=== PATIENT | female | born 1955 | race Caucasian/White ===

== ENCOUNTER 2024-03-15 20:49 | Emergency (ER) | payer MEDICARE, OTHER, SELFPAY ==
[2024-03-15 20:55] VITALS: BP 150/72
[2024-03-15 21:12] LABS: % Basophils 0.7 % (0-2); % Eosinophils 14.5 % (0-6); % Immature Granulocytes 0.2 % (0-0.5); % Lymphocytes 37.2 % (20.5-51.1); % Monocytes 8.8 % (1.7-9.3); % Neutrophils 38.6 % (42.2-75.2); Absolute Basophils 0.1 10^3/uL (0-0.2); Absolute Eosinophils 1.2 10^3/uL (0-0.7); Absolute Monocytes 0.7 10^3/uL (0.1-0.6); Absolute Neutrophils 3.1 10^3/uL (1.4-6.5); Hematocrit 37.1 % (37.0-47.0); Hemoglobin 12.9 g/dL (12.0-16.0); Mean Corp Hgb Conc. 34.8 g/dL (33.0-37.0); Mean Corpuscular Hgb 30.6 pg (27.0-31.0); Mean Corpuscular Volume 87.9 fL (81.0-99.0); Mean Platelet Volume 10.8 fL (7.4-10.4); Nucleated Red Blood Cells % 0 %; Platelet Count 240 10^3/uL (130-400); Red Blood Cell Count 4.22 10^6/uL (4.20-5.40); Red Cell Dist. Width 12.9 % (11.5-14.5); White Blood Cell Count 8.1 10^3/uL (4.8-10.8)
[2024-03-15 21:27] LABS: ALT (SGPT) 19 U/L (0-35); AST (SGOT) 29 U/L (14-36); Albumin 3.8 g/dl (3.5-5.0); Alkaline Phosphatase 58 U/L (38-126); Blood Urea Nitrogen 15 mg/dl (7-17); Calcium 9.4 mg/dl (8.4-10.2); Carbon Dioxide 27 mmol/L (22-30); Chloride 104 mmol/L (98-107); Glucose 103 mg/dl (70-99); Sodium 138 mmol/L (135-145); Total Bilirubin 0.5 mg/dl (0.2-1.3); Total Protein 6.3 g/dl (6.3-8.2); eGFR > 60.00
[2024-03-15 21:28] LABS: Lipase 790 U/L (23-300)
--- NOTE | 2024-03-15 22:25 | ED.GENMED ---
History of Present Illness
General
Chief Complaint: Abdominal Pain
Source: patient
Exam Limitations: none
Time Seen by Provider: 03/15/24 21:52
Travel History
Have you had any contact with someone who has COVID-19?: No
Do you have any symptoms of coronavirus? Fever > 100 degrees, chills, cough, shortness of breath, sore throat, loss of taste or smell, muscle aches, or headache?: No
History of Present Illness
History of Present Illness:
This is a 68 year old female that comes in with c/o abd pain. States that she started with diarrhea 5 weeks ago. States that she saw the PCP and she ordered a lot of test and they were normal. States that she was told that if she continued with abd
pain to go to ER. States that she eat [employer] tonight with rice and she tolerated this 2 days ago but tonight she started with abd pain. States that the pain last 4-5 hours. States that her stool has been thin and then she will continue to have
stool but it is diarrhea. States that she did take 2 Imodium yesterday. States that she had diarrhea 4-5 times today. Denies any fever, chills, chest pain, SOB, nausea, vomiting, headache, dizziness, urinary burning.
Past History
Past History
ED Past Medical History: Hypercholesterolemia and Psychiatric (Anxiety, depression)
ED Past Surgical History: Appendectomy
Social History
Tobacco: Non-smoker
Alcohol: None
Personal:
Living: alone
Review of Systems
Review of Systems
All Other Systems: ROS reviewed and negative except as documented in HPI and ROS
Constitutional: Reports no symptoms; Denies fever or chills
EENT: Reports no symptoms
Respiratory: Reports no symptoms; Denies cough or trouble breathing
Cardiac: Reports no symptoms; Denies chest pain
ABD/GI: Reports abdominal pain and diarrhea; Denies nausea or vomiting
: Reports no symptoms; Denies dysuria, frequency or urgency
Musculoskeletal: Reports no symptoms
Skin: Reports no symptoms
Neurological: Reports no symptoms; Denies dizzy or headache
Psychiatric: Reports no symptoms
Phy Exam
General Physical Exam
General Presentation: no apparent distress
General age: appears stated age
General Skin: warm and dry
General Habitus: elderly
General Mental: alert
General Hydration: dry mucous membranes
ENT Exam
ENT Exam: TM's normal, pharynx normal and neck supple
Eye Exam
Eye Exam: EOMI
Cardiovascular Exam
Cardiovascular Exam: regular rate/rhythm, no edema, no murmur and normal peripheral pulses
Pulmonary Exam
Pulmonary Exam: lungs clear, no respiratory distress, no rales, chest non tender, no crackles, no rhonchi, no wheezing and no cough
Gastrointestinal Exam
Gastrointestinal Exam: normal bowel sounds, non tender, soft, no organomegaly, no pulsatile mass and non distended
Musculoskeletal Exam
Musculoskeletal Exam: full ROM and no edema
Skin Exam
Skin Exam: normal color, warm/dry, no rash and no petechia
Psychiatric Exam
Psychiatric Exam: normal mood/affect
Course
Orders/Labs/Results
Orders:
Orders
03/15/24 21:04
Complete Blood Count/With Diff Urgent
Comprehensive Metabolic Panel Urgent
Lipase Urgent
03/15/24 22:24
0.9% Sodium Chloride 1000 ml [Nss] 1,000 ml IV BOLUS
Iohexol [Omnipaque] See Protocol PO NOW STA
03/15/24 22:33
Ketorolac [Toradol] 30 mg IV NOW STA
03/16/24 01:00
CT Abd/pel W Iv And Oral Contr Urgent
Reason For Exam: abd pain, diarrhea
Abnormal Lab Results
03/15/24
21:04
MPV 10.8 H fL
(7.4-10.4)
Absolute Monos (auto) 0.7 H 10^3/uL
(0.1-0.6)
Absolute Eos (auto) 1.2 H 10^3/uL
(0-0.7)
Neutrophils % 38.6 L %
(42.2-75.2)
Eosinophils % 14.5 H %
(0-6)
Glucose 103 H mg/dl
(70-99)
Lipase 790 H U/L
(23-300)
03/15/24 21:04
03/15/24 21:04
Glucose nonfasting. Lipase elevation (possible early pancreatitis)
Vital Signs
Initial and Last Documented VS:
Initial Vital Signs
Temp Pulse Resp BP Pulse Ox
98.2 F 60 18 150/72 96
03/15/24 20:55 03/15/24 20:55 03/15/24 20:55 03/15/24 20:55 03/15/24 20:55
Last Documented Vital Signs
Temp Pulse Resp BP Pulse Ox
98.2 F 54 16 146/87 98
03/15/24 20:55 03/16/24 00:45 03/16/24 00:45 03/16/24 00:22 03/16/24 00:45
MDM/Problems Addressed
Differential Diagnosis Includes:
Enteritis, Colitis
MDM/Problems Addressed:
This is a 68 year old female that comes in with c/o abd pain and diarrhea. States that this started 5 weeks ago and has continued. Patient saw her PCP and had testing but this was normal. Told to come to the ER if her pain continued.
Will get labs and CT scan. Will give IV fluids.
Back into see patient. Reviewed labs. Explained that her Lipase is slightly elevated but she has no upper abd discomfort and is not vomiting. However, would have family doctor recheck labs in a few days to make sure this is not continuing to raise.
Patient to stay away from milk and milk products until the diarrhea stops. Patient can eat chicken, rice and potatoes. Bananas are binding. Patient to return with increased or changing pain, fever, or any other concerns.
Chronic conditions affecting care:
NA
Acute Exacerbation and/or Progression of Chronic Illness:
NA
*Radiology
Radiology exam reviewed: radiology read reviewed (CT night hawk- Mild thickening of the proximal jejunum more than expected for peristalsis concerning for enteritis. NO obstruction, pneumatosis or free air. Appendectomy. NO renal or obstructing
ureteral stones. NO hydronephrosis or hydroureter. Gallbladder is unremarkable. No obvious stones but CT ) and other (CT cont- has a diminished sensitivity for noncalcified gallstones. No biliary dilation. No adnexal masses or Significant free
fluid. )
*Pulse Oximetry
Patient hypoxic: no
*EKG
Interpreted by ED Provider?: NA
Rate: EKG- N/A
*Spray Machine Loader Interpretation
Rate: Spray Machine Loader- N/A
*Critical Care Note
Total Time (30-74mins, 75-104mins- exclusive of procedures): Not Applicable
ED Attending Note
-
Portions of this chart may have been created with voice recognition software.� Occasional wrong word or��sound alike� substitutions may have occurred due to the inherent limitations of voice recognition software.
Discharge Plan
Departure
Patient Disposition: Home (Routine Discharge)
Date of Disposition: 03/16/24
Time of Disposition: 02:00
Patient with high blood pressure during this ER visit?: Yes
Condition: Good
Covid-19: Not Applicable
Discharge Problem:
Enteritis
Instructions: Abdominal Pain, BLOOD PRESSURE
Referrals:
Feli Pandya, [Family Provider] - Follow up in 2-3 days
Activity Restrictions/Additional Instructions:
As discussed, your blood work is normal except your Lipase is elevated. This should be rechecked by the family doctor in 2-3 days to make sure that it is not continuing to rise. Your CT shows that you have enteritis. This is a viral illness and
will go away on its own. Please stay away from milk and milk products until the diarrhea stops. Chicken, rice and potatoes are easily digested. Banana's are binding. Please increase your water intake to 8-8oz glasses daily. Follow up with the family
doctor in 2-3 days for recheck. IF YOU HAVE INCREASED OR CHANGING PAIN, FEVER, OR YOU HAVE ANY OTHER CONCERNS PLEASE RETURN TO THE EMERGENCY ROOM.
Interventions
Interventions:
*Risk Screen - Suicide Last Done: 03/15/24 20:55
*General Assessment Last Done: 03/15/24 22:53
*Neglect/Abuse Screening Last Done: 03/15/24 20:55
*ED COVID-19 Vaccine History Last Done: 03/15/24 22:53
YR-Oxrbqc-Jgllekghkm Assessment Last Done: 03/15/24 23:47
Discharge Date and Time
Print Language: SAMI
[2024-03-15] MEDS: OMNIPAQUE 50 ML PO (22:47)
[2024-03-15] MEDS: NSS 1000 IV (22:50)
[2024-03-15] MEDS: TORADOL 30 MG IV (22:50)
[2024-03-15 22:53] VITALS: BMI 28.4
[2024-03-15 22:55] VITALS: BP 149/71
[2024-03-16 00:22] VITALS: BP 146/87
[2024-03-16 02:01] VITALS: BP 129/76
== END 2024-03-16 02:14 | disposition home or self-care (01) ==
LOC: EMR 20:49
PROVIDERS: EMERGENCY PHYSICIAN Emergency Medicine; FAMILY PHYSICIAN Family Medicine
DX: K52.9 Noninfective gastroenteritis and colitis, unspecified (principal); R03.0 Elevated blood-pressure reading, without diagnosis of hypertension
CPT/HCPCS: 99285; 96374; 96361; 74177; 80053; 83690; 85025; Q9967

== ENCOUNTER 2024-06-11 07:49 | Emergency (ER) | payer MEDICARE, OTHER, SELFPAY ==
[2024-06-11 07:51] VITALS: BP 126/86
[2024-06-11 08:03] VITALS: BMI 24.6
--- NOTE | 2024-06-11 08:24 | EDRN ---
pt assessment performed and documented in work list, the pt went to the bathroom to attempt to urinate however the pt stated that she could not and 'feels pressure', this RN performed bladder scan, labs were drawn and sent, the pt is resting in
stretcher in the lowest position, side rails up x1, HOB elevated, call zuñiga within reach, awaiting for provider to come to the pts bedside, will continue to monitor the pt closely
[2024-06-11 08:32] LABS: % Basophils 1.1 % (0-2); % Eosinophils 2.3 % (0-6); % Immature Granulocytes 0.1 % (0-0.5); % Lymphocytes 22.1 % (20.5-51.1); % Monocytes 7.7 % (1.7-9.3); % Neutrophils 66.7 % (42.2-75.2); Absolute Basophils 0.1 10^3/uL (0-0.2); Absolute Eosinophils 0.2 10^3/uL (0-0.7); Absolute Lymphocytes 1.6 10^3/uL (1.2-3.4); Absolute Monocytes 0.6 10^3/uL (0.1-0.6); Absolute Neutrophils 4.8 10^3/uL (1.4-6.5); Hematocrit 40.1 % (37.0-47.0); Hemoglobin 13.6 g/dL (12.0-16.0); Mean Corp Hgb Conc. 33.9 g/dL (33.0-37.0); Mean Corpuscular Hgb 30.4 pg (27.0-31.0); Mean Corpuscular Volume 89.7 fL (81.0-99.0); Mean Platelet Volume 10.5 fL (7.4-10.4); Nucleated Red Blood Cells % 0 %; Platelet Count 254 10^3/uL (130-400); Red Blood Cell Count 4.47 10^6/uL (4.20-5.40); Red Cell Dist. Width 13.1 % (11.5-14.5); White Blood Cell Count 7.3 10^3/uL (4.8-10.8)
--- NOTE | 2024-06-11 08:33 | EDRN ---
provider currently at the pts bedside speaking with the pt
[2024-06-11] MEDS: NSS 1000 IV (08:37)
--- NOTE | 2024-06-11 08:37 | ED.GENMED ---
History of Present Illness
General
Chief Complaint: Urinary Symptoms
Source: patient
Exam Limitations: none
Time Seen by Provider: 06/11/24 08:09
Nursing documentation reviewed up to this point in time: agreed with
History of Present Illness
History of Present Illness:
68-year-old female difficulty urinating onset a week or so ago saw her PCP had a urinalysis started on Macrobid improved got a call states that her culture was negative, worsening over the past day or so no fever chills no nausea or vomiting no
chest pain or shortness of breath she had an appendectomy, believes she had urinary issues as a child, though she is not sure of the details, feels like she cannot start her stream or empty her bladder, never had diverticulitis, points midline in
her low abdomen where the pressure is
She did tell me her anxiety and depression started up around the same time as her urinary symptoms--- her physicians doubled her Celexa around this time, last night she felt like she could not sleep took 5 Klonopin denies a suicidal attempt
Past History
Past History
ED Past Medical History: Hypercholesterolemia and Psychiatric (Anxiety, depression)
ED Past Surgical History: Appendectomy
Social History
Tobacco: Non-smoker
Alcohol: None
Drug: None
Personal:
Living: alone
Employment: Retired
Review of Systems
Review of Systems
All Other Systems: Not applicable
Constitutional: Denies fever or fatigue
EENT: Reports no symptoms
Respiratory: Reports no symptoms
Cardiac: Reports no symptoms
ABD/GI: Denies abdominal pain
: Reports difficulty voiding and urgency; Denies dysuria, frequency, flank pain, incontinence or bleeding
Musculoskeletal: Reports no symptoms
Skin: Reports no symptoms
Neurological: Reports no symptoms
Endocrine: Reports no symptoms
Phy Exam
Physical Exam
Physical Exam:
Physical Exam
General: no apparent distress, not acutely ill
Neck: No jaundice
Heart: s1/s2 regular rate and rhythm, no murmur. equal radial pulses.
Lungs: no acute respiratory distress. clear bilaterally
Abdomen: Mild suprapubic tenderness no CVA tenderness
Neuro: alert and oriented. no focal neurological deficits
Skin: no rash
Psychiatric: well kept. interactive and cooperative
Extremities: no edema.
Course
Orders/Labs/Results
Orders:
Orders
06/11/24 08:20
Acetaminophen Urgent
Comment: ADD ON
Complete Blood Count/With Diff Urgent
Comprehensive Metabolic Panel Urgent
Lipase Urgent
Salicylate Urgent
Comment: ADD ON
Urinalysis Reflex To Culture Urgent
Date Specimen was Collected: 06/11/24
Time Specimen was Collected: 08:01
Urine Microscopic Reflex Cult Urgent
Urine Culture Urgent
CALEB Source: U
Specimen Description:
Date Specimen was Collected: 06/11/24
Time Specimen was Collected: 08:01
06/11/24 08:37
0.9% Sodium Chloride 1000 ml [Nss] 1,000 ml IV BOLUS
06/11/24 08:50
Add On- LAB Urgent
Tests Added?: Acetaminophen,/salicylate
Crisis Consult Routine
Reason for Consult: depression
Abnormal Lab Results
06/11/24
08:20
MPV 10.5 H fL
(7.4-10.4)
Chloride 108 H mmol/L
(98-107)
Glucose 103 H mg/dl
(70-99)
Leukocyte Esterase Rfl 1+ A
(Negative)
Salicylates < 1.0 L mg/dl
(2.0-20.0)
Acetaminophen < 10 L ug/ml
(10-30)
06/11/24 08:20
06/11/24 08:20
Vital Signs
Initial and Last Documented VS:
Initial Vital Signs
Temp Pulse Resp BP Pulse Ox
97.8 F 64 16 126/86 98
06/11/24 07:51 06/11/24 07:51 06/11/24 07:51 06/11/24 07:51 06/11/24 07:51
Last Documented Vital Signs
Temp Pulse Resp BP Pulse Ox
97.8 F 58 13 126/86 96
06/11/24 07:51 06/11/24 08:30 06/11/24 08:30 06/11/24 07:51 06/11/24 08:30
MDM/Problems Addressed
Differential Diagnosis Includes:
Retention UTI med effect stone diverticular disease
MDM/Problems Addressed:
Trouble urinating
Chronic conditions affecting care: Previous abdomnial surgery and Psychiatric illness
Acute Exacerbation and/or Progression of Chronic Illness: Previous abdomnial surgery and Psychiatric illness
*Pulse Oximetry
Patient hypoxic: no
*Critical Care Note
Total Time (30-74mins, 75-104mins- exclusive of procedures): Not Applicable
Update Note
Update Note:
Update bladder scan noted, her Celexa was increased we will review pharmacology perhaps this is all anticholinergic, additionally she took 5 Klonopin last night denies suicidal thoughts will add salicylate and acetaminophen quantitative levels as
crisis to evaluate her
Update labs noted, urine noted equivocal for infection, just completed some Macrobid await culture reviewed with crisis cleared for discharge arrangements made for new psychiatrist she is only seeing a PCP
Will start on a short course of Flomax at nighttime, have her follow-up with her PCP, urogynecology, and psychiatry
ED Attending Note
-
Portions of this chart may have been created with voice recognition software.� Occasional wrong word or��sound alike� substitutions may have occurred due to the inherent limitations of voice recognition software.
Discharge Plan
Departure
Patient Disposition: Home (Routine Discharge)
Date of Disposition: 06/11/24
Time of Disposition: 10:28
Patient with high blood pressure during this ER visit?: No
Condition: Good
Discharge Problem:
Trouble urinating
Instructions: Urinary retention - Discharge instructions, Urinary retention
Prescriptions:
New
tamsulosin [Flomax] 0.4 mg capsule
0.4 mg PO HS Qty: 10 0RF
Referrals:
Nayeli Kirk DO [Active] - Next open appointment
Feli Pandya DO [Family Provider] - Next open appointment
Interventions
Interventions:
*Risk Screen - Suicide Last Done: 06/11/24 07:51
*General Assessment Last Done: 06/11/24 07:51
*Neglect/Abuse Screening Last Done: 06/11/24 07:51
ED- Fall Risk Assessment Last Done: 06/11/24 08:03
*ED COVID-19 Vaccine History Last Done: 06/11/24 08:03
ED-Female Genitourinary Assessment Last Done: 06/11/24 08:03
Discharge Date and Time
Print Language: KITTITIAN
[2024-06-11 08:45] LABS: ALT (SGPT) 18 U/L (0-35); AST (SGOT) 26 U/L (14-36); Albumin 4.3 g/dl (3.5-5.0); Alkaline Phosphatase 66 U/L (38-126); Blood Urea Nitrogen 12 mg/dl (7-17); Calcium 9.5 mg/dl (8.4-10.2); Carbon Dioxide 28 mmol/L (22-30); Chloride 108 mmol/L (98-107); Estimated Creatinine Clearance 70 ml/min; Glucose 103 mg/dl (70-99); Lipase 108 U/L (23-300); Potassium 4.1 mmol/L (3.5-5.1); Sodium 138 mmol/L (135-145); Total Bilirubin 0.6 mg/dl (0.2-1.3); Total Protein 6.8 g/dl (6.3-8.2); eGFR > 60.00
--- NOTE | 2024-06-11 08:50 | EDRN ---
Dr. Munoz currently at the pts bedside speaking with the pt
--- NOTE | 2024-06-11 08:52 | EDRN ---
the pt pressed the call zuñiga and this RN entered the pts room, the pt stated that she wanted to try to urinate, this RN unhooked the pt from the monitor and the pt was able to ambulate to the bathroom with no issues, the pt wanted privacy, this RN
will continue to monitor the pt closely
--- NOTE | 2024-06-11 08:53 | EDRN ---
a crisis consult has been placed for the pt due to the pt stating to the provider that she 'feels more depressed than usual and my anxiety is crippling, i took an extra clonopin just to relax, i wasn't trying to hurt myself of anything, i just feel
like my anxiety has gotten out of control', crisis has been notified, will continue to monitor the pt closely
--- NOTE | 2024-06-11 09:05 | EDRN ---
the pt pressed the call zuñiga and this RN entered the pts room, the pt was able to provide a urine sample, urine specimen sent to lab
[2024-06-11 09:10] LABS: Acetaminophen < 10 ug/ml (10-30); Salicylate < 1.0 mg/dl (2.0-20.0)
--- NOTE | 2024-06-11 09:32 | EDRN ---
crisis staff currently at the pts bedside speaking with the pt
[2024-06-11 09:36] LABS: Urine Albumin Negative (Neg - Trace); Urine Bilirubin Negative (Negative); Urine Character Clear (Clear); Urine Color Yellow; Urine Glucose Negative (Negative); Urine Ketone Negative (Negative); Urine Leukocyte 1+ (Negative); Urine Nitrite Negative (Negative); Urine Occult Blood Negative (Negative); Urine Urobilinogen Negative (Neg - 1+)
[2024-06-11 10:02] LABS: Urine Amorphous Seen
[2024-06-11 10:03] LABS: Urine Red Blood Cell 0-2 /HPF (0-2)
--- NOTE | 2024-06-11 10:29 | EDRN ---
Dr. Munoz and crisis staff currently at the pts bedside speaking with the pt
[2024-06-11 10:30] VITALS: BP 136/81
[2024-06-11 11:36] VITALS: BP 123/71
== END 2024-06-11 11:40 | disposition home or self-care (01) ==
LOC: EMR 07:49
PROVIDERS: Emergency Medicine; EMERGENCY PHYSICIAN Emergency Medicine; FAMILY PHYSICIAN Family Medicine
DX: R39.15 Urgency of urination (principal); R39.198 Other difficulties with micturition; R10.30 Lower abdominal pain, unspecified; F41.9 Anxiety disorder, unspecified; F32.A Depression, unspecified; E78.00 Pure hypercholesterolemia, unspecified; Z86.16 Personal history of COVID-19
CPT/HCPCS: 99284; 96360; 51798; 80053; 80143; 80179; 81003; 81015; 83690; 85025; 87086

== ENCOUNTER 2024-06-16 10:59 | Emergency (ER) | payer MEDICARE, OTHER, SELFPAY ==
[2024-06-16 11:06] VITALS: BP 122/92
[2024-06-16 13:12] VITALS: BP 137/80
[2024-06-16 13:33] LABS: Urine Albumin Negative (Neg - Trace); Urine Bilirubin Negative (Negative); Urine Character Clear (Clear); Urine Color Yellow; Urine Glucose Negative (Negative); Urine Ketone Trace (Negative); Urine Leukocyte 2+ (Negative); Urine Nitrite Negative (Negative); Urine Occult Blood Negative (Negative); Urine Urobilinogen Negative (Neg - 1+)
--- NOTE | 2024-06-16 13:45 | ED.GENMED ---
History of Present Illness
General
Chief Complaint: Anxiety
Source: patient
Time Seen by Provider: 06/16/24 13:31
History of Present Illness
History of Present Illness:
68yoF with a history of anxiety presenting for evaluation of depression. Patient has a history of ongoing depression for many years and was previously maintained on Celexa and Klonopin 1 mg daily. Her symptoms have been worsening over the past
several weeks. She has been following with her PCP regarding her symptoms who has been adjusting her medications. She started a Klonopin taper about 1 week ago and is currently taking 0.75 mg daily. Her Celexa was also discontinued and she was
initiated on Lexapro and Atarax. Patient is having trouble particularly at nighttime. She denies any suicidal or homicidal ideations. Patient was advised to go to the ED by her PCP today.
Past History
Past History
ED Past Medical History: Hypercholesterolemia and Psychiatric (Anxiety, depression)
ED Past Surgical History: Appendectomy
Social History
Tobacco: Non-smoker
Alcohol: None
Drug: None
Personal:
Living: alone
Employment: Retired
Phy Exam
General Physical Exam
General Presentation: well appearing and no apparent distress
General age: appears stated age
General Skin: warm and dry
General Habitus: normal
General Mental: alert
Cardiovascular Exam
Cardiovascular Exam: regular rate/rhythm
Pulmonary Exam
Pulmonary Exam: no respiratory distress
Nieves Coma Scale
Eye Opening: Spontaneous
Verbal Response: Oriented
Motor Response: Obeys Commands
GCS Total Score: 15
Skin Exam
Skin Exam: normal color and warm/dry
Psychiatric Exam
Psychiatric Exam: depressed and other (Maintains good eye contact and forthcoming with details. No SI/HI. No signs of psychosis. )
Course
Orders/Labs/Results
Orders:
Orders
06/16/24 13:14
Urinalysis Reflex To Culture Urgent
Date Specimen was Collected: 06/16/24
Time Specimen was Collected: 13:11
Urine Microscopic Reflex Cult Urgent
Urine Culture Urgent
CALEB Source: U
Specimen Description:
Date Specimen was Collected: 06/16/24
Time Specimen was Collected: 13:11
06/16/24 13:44
Crisis Consult Urgent
Reason for Consult: Depression eval
Abnormal Lab Results
06/16/24
13:14
Urine Ketones Trace A
(Negative)
Leukocyte Esterase Rfl 2+ A
(Negative)
Urine WBC (Reflex) 11-15 A /HPF
(0-5)
Urine Bacteria (Reflex) Few A
(Negative)
Vital Signs
Initial and Last Documented VS:
Initial Vital Signs
Temp Pulse Resp BP Pulse Ox
97.7 F 88 17 122/92 99
06/16/24 11:06 06/16/24 11:06 06/16/24 11:06 06/16/24 11:06 06/16/24 11:06
Last Documented Vital Signs
Temp Pulse Resp BP Pulse Ox
97.7 F 68 16 137/80 99
06/16/24 11:06 06/16/24 13:12 06/16/24 13:12 06/16/24 13:12 06/16/24 11:06
MDM/Problems Addressed
Differential Diagnosis Includes:
68yoF here with anxiety and depression. Longstanding hx of depression. Recently started on a Klonopin taper about a week ago. PCP switched her from Celexa to Lexapro 2 days ago. No SI/HI. She is afebrile and hemodynamically stable. She is
well-appearing no acute distress. Differential diagnosis includes but is not limited to: Depression, anxiety
UA was sent by nursing staff prior to my initial evaluation which shows 10-15 WBCs and a few bacteria. Patient has been having difficulty with urinating for several weeks and has a urology appointment scheduled for next week. She has had 2
negative urine cultures within the last 2 weeks. Will hold on antibiotics and await culture results.
*Critical Care Note
Total Time (30-74mins, 75-104mins- exclusive of procedures): Not Applicable
Update Note
Update Note:
Patient was evaluated by crisis. Patient is not interested in 201 at this time and there are no grounds for 302. Patient would like to follow-up outpatient and resources were provided. She was advised to follow-up closely with her PCP and ED
return precautions were discussed including suicidal ideations. Patient discharged in stable condition.
ED Attending Note
-
Portions of this chart may have been created with voice recognition software.� Occasional wrong word or��sound alike� substitutions may have occurred due to the inherent limitations of voice recognition software.
Discharge Plan
Departure
Patient Disposition: Home (Routine Discharge)
Date of Disposition: 06/16/24
Time of Disposition: 14:47
Patient with high blood pressure during this ER visit?: No
Discharge Problem:
Anxiety
Instructions: Anxiety, Adult (DC)
Prescriptions:
No Action
tamsulosin [Flomax] 0.4 mg capsule
0.4 mg PO HS Qty: 10 0RF
Referrals:
Feli Pandya DO [Family Provider] -
Activity Restrictions/Additional Instructions:
Please follow-up with your family doctor and the outpatient mental health resources provided. Return to the ER with any worsening symptoms or suicidal thoughts.
Interventions
Interventions:
*Risk Screen - Suicide Last Done: 06/16/24 11:08
*General Assessment Last Done: 06/16/24 11:08
*Neglect/Abuse Screening Last Done: 06/16/24 11:08
*ED COVID-19 Vaccine History Last Done: 06/16/24 11:08
*Nursing Disposition Last Done: 06/16/24 15:07
ED-Psychological Assessment Last Done: 06/16/24 13:12
Discharge Date and Time
Discharge Date/Time: 06/16/24 15:07
Print Language: OCCITAN
[2024-06-16 13:51] LABS: Urine Bacteria Few (Negative); Urine Red Blood Cell 0-2 /HPF (0-2); Urine Squamous Cell 16-20 /LPF (Few)
== END 2024-06-16 15:07 | disposition home or self-care (01) ==
LOC: EMR 10:59
PROVIDERS: EMERGENCY PHYSICIAN Emergency Medicine; FAMILY PHYSICIAN Family Medicine
DX: F41.8 Other specified anxiety disorders (principal); E78.00 Pure hypercholesterolemia, unspecified; Z90.49 Acquired absence of other specified parts of digestive tract
CPT/HCPCS: 99282; 81003; 81015; 87086

== ENCOUNTER 2025-01-11 06:23 | Day surgery (SDC) | payer MEDICARE, OTHER, SELFPAY | END 2025-01-11 12:38 | disposition home or self-care (01) | LOC: GI 06:23 | PROVIDERS: ATTENDING PHYSICIAN Internal Medicine | DX: Z12.11 Encounter for screening for malignant neoplasm of colon (principal); K55.20 Angiodysplasia of colon without hemorrhage; K64.8 Other hemorrhoids; K57.30 Diverticulosis of large intestine without perforation or abscess without bleeding; D12.3 Benign neoplasm of transverse colon; D12.8 Benign neoplasm of rectum; K63.5 Polyp of colon; K63.89 Other specified diseases of intestine; Z86.0100 Personal history of colon polyps, unspecified | CPT/HCPCS: 45385; 45380; 88305 ==